=== PATIENT | male | born 2000 | race Caucasian/White ===

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

== ENCOUNTER 2021-05-04 13:27 | Emergency (ER) | payer OTHER ==
[~2021-05-04 13:27] MED LIST: NAPR-837 PO; REGL10TA6 PO
[2021-05-04] MEDS ORDERED: ACETAMINOPHEN TAB 650MG DOSE (2X325MG) PO ONE (15:20)
[2021-05-04 16:23] VITALS: BP 153/86
== END 2021-05-04 16:25 | disposition home or self-care (01) ==
LOC: M ED 13:27
DX: S00.81XA Abrasion of other part of head, initial encounter (principal); V47.5XXA Car driver injured in collision with fixed or stationary object in traffic accident, initial encounter; Y92.410 Unspecified street and highway as the place of occurrence of the external cause

== ENCOUNTER 2023-10-25 08:15 | Emergency (ER) | payer OTHER, SELFPAY ==
[~2023-10-25] VITALS: Ht 160 cm; Wt 57.7 kg
[2023-10-25 09:28] LABS: BASO # 0.1 10^3/uL (0.0-0.2); BASO % 0.5 % (0.0-1.0); EOS # 0.3 10^3/uL (0.0-0.5); EOS % 3.1 % (0.0-3.0); HEMATOCRIT 40.5 % (42.0-52.0); HEMOGLOBIN 13.8 g/dl (13.5-17.5); LYMPH # 1.4 10^3/uL (1.5-5.0); LYMPH % 13.7 % (24.0-44.0); MEAN CORPUSCULAR HEMOGLOBIN 32.4 pg (27.0-33.0); MEAN CORPUSCULAR HGB CONC 34.1 g/dl (32.0-36.5); MEAN CORPUSCULAR VOLUME 95.1 fl (80.0-96.0); MONO # 0.7 10^3/uL (0.0-0.8); MONO % 7.4 % (2.0-8.0); NEUTROPHILS # 7.5 10^3/uL (1.5-8.5); NEUTROPHILS % 74.8 % (36.0-66.0); PLATELET COUNT, AUTOMATED 304 10^3/uL (150-450); RED BLOOD COUNT 4.26 10^6/uL (4.30-6.10)
[2023-10-25 09:53] LABS: ETHYL ALCOHOL (ETHANOL) < 0.003 % (0.000-0.010)
[2023-10-25 09:55] LABS: BLOOD UREA NITROGEN 9 MG/DL (9-23); CALCIUM LEVEL 9.1 MG/DL (8.5-10.1); CARBON DIOXIDE LEVEL 31 MMOL/L (20-31); CHLORIDE LEVEL 104 MMOL/L (98-107); CPK CREATINE PHOSPHOKINASE 465 U/L (46-171); CREATININE FOR GFR 0.84 MG/DL (0.70-1.30); GLOMERULAR FILTRATION RATE > 60.0 (>60); GLUCOSE, FASTING 108 MG/DL (60-100); MAGNESIUM LEVEL 2.1 MG/DL (1.8-2.4); POTASSIUM SERUM 3.9 MMOL/L (3.5-5.1); SODIUM LEVEL 137 MMOL/L (136-145)
[2023-10-25] MEDS: ONDANSETRON 4MG 2ML VIAL IV ONE (10:21)
[2023-10-25] MEDS: NS 1,000 ML IV ONE (10:23)
[2023-10-25] MEDS: ACETAMINOPHEN *IV* 1,000 MG in IV 1 EA IV ONE (10:25)
[2023-10-25] MEDS ORDERED: HOME MED LIST COMPLETE! XX SCH (10:35)
[2023-10-25 10:54] LABS: AMPHETAMINES LEVEL URINE NEGATIVE (NEGATIVE)
[2023-10-25 10:55] LABS: BARBITURATES URINE NEGATIVE (NEGATIVE); BENZODIAZEPINES URINE NEGATIVE (NEGATIVE); COCAINE METABOLITE URINE NEGATIVE (NEGATIVE); METHADONE URINE NEGATIVE (NEGATIVE); OPIATES URINE NEGATIVE (NEGATIVE); PHENCYCLIDINE URINE NEGATIVE (NEGATIVE)
[2023-10-25 11:00] LABS: CANNABINOIDS URINE POSITIVE (NEGATIVE)
[2023-10-25] MEDS ORDERED: KEPP1TAB PO (12:42)
[2023-10-25] MEDS: levETIRAcetam INJection 1,000 MG in D5W 100 ML IV ONE (14:02)
[2023-10-25 14:54] VITALS: BP 142/62; TEMP 96.8; O2SAT 95
== END 2023-10-25 15:00 | disposition home or self-care (01) ==
LOC: M ED 08:15
DX: G40.209 Localization-related (focal) (partial) symptomatic epilepsy and epileptic syndromes with complex partial seizures, not intractable, without status epilepticus (principal); F17.200 Nicotine dependence, unspecified, uncomplicated; F17.290 Nicotine dependence, other tobacco product, uncomplicated
CPT/HCPCS: 36415; 70450; 80048; 80307; 82077; 82550; 83735; 85025; 93005; 93041; 96365; 96366; 96368; 96375; 99285; J0131; J1953; J2405

== ENCOUNTER → 2024-01-05 | Outpatient (CLI) | payer OTHER ==
[~2024-01-05] MED LIST changes: +KEPP1TAB PO
== END ==
LOC: M PLAIMG 14:54
PROVIDERS: ATTEND Nurse Practitioner Family
DX: G40.309 Generalized idiopathic epilepsy and epileptic syndromes, not intractable, without status epilepticus (principal); G93.89 Other specified disorders of brain; Z98.890 Other specified postprocedural states

== ENCOUNTER 2024-04-02 00:32 | Inpatient (IN) | payer OTHER ==
[~2024-04-02] VITALS: Ht 167.6 cm; Wt 59.0 kg
[2024-04-02] MEDS: HALOPERIDOL LACTATE 5MG/ML VIAL IM ONE (00:40)
[2024-04-02] MEDS: diphenhydrAMINE 50MG/ML VIAL IM ONE (00:40)
[2024-04-02] MEDS: LORazepam 2 MG/ML 1ML VIAL IM ONE (00:40)
[2024-04-02 02:41] LABS: HEMATOCRIT 43.4 % (42.0-52.0); HEMOGLOBIN 14.9 g/dl (13.5-17.5); MEAN CORPUSCULAR HEMOGLOBIN 33.1 pg (27.0-33.0); MEAN CORPUSCULAR HGB CONC 34.3 g/dl (32.0-36.5); MEAN CORPUSCULAR VOLUME 96.4 fl (80.0-96.0); PLATELET COUNT, AUTOMATED 309 10^3/uL (150-450); WHITE BLOOD COUNT 10.7 10^3/uL (4.0-10.0)
[2024-04-02 03:00] LABS: ETHYL ALCOHOL (ETHANOL) 0.174 % (0.000-0.010)
[2024-04-02 03:01] LABS: SALICYLATE LEVEL < 3.0 MG/DL (<30)
[2024-04-02 03:02] LABS: ALBUMIN 4.2 G/DL (3.2-5.2); ALKALINE PHOSPHATASE 91 U/L (40-129); ALT/SGPT 20 U/L (7.0-40); AST/SGOT 19 U/L (<34); BILIRUBIN,DIRECT < 0.1 MG/DL (<0.4); BILIRUBIN,TOTAL 0.2 MG/DL (0.3-1.2); BLOOD UREA NITROGEN 11 MG/DL (9-23); CALCIUM LEVEL 9.3 MG/DL (8.5-10.1); CARBON DIOXIDE LEVEL 23 MMOL/L (20-31); CHLORIDE LEVEL 109 MMOL/L (98-107); CREATININE FOR GFR 0.77 MG/DL (0.70-1.30); GLOMERULAR FILTRATION RATE > 60.0 (>60); GLUCOSE, FASTING 100 MG/DL (60-100); POTASSIUM SERUM 4.1 MMOL/L (3.5-5.1); SODIUM LEVEL 146 MMOL/L (136-145); TOTAL PROTEIN 7.5 G/DL (5.7-8.2)
[2024-04-02 03:04] LABS: THYROID STIMULATING HORMONE 2.991 uIU/ML (0.55-4.78)
[2024-04-02 03:10] LABS: AMPHETAMINES LEVEL URINE NEGATIVE (NEGATIVE)
[2024-04-02 03:11] LABS: BARBITURATES URINE NEGATIVE (NEGATIVE); BENZODIAZEPINES URINE NEGATIVE (NEGATIVE); COCAINE METABOLITE URINE NEGATIVE (NEGATIVE); METHADONE URINE NEGATIVE (NEGATIVE); OPIATES URINE NEGATIVE (NEGATIVE); PHENCYCLIDINE URINE NEGATIVE (NEGATIVE)
[2024-04-02 03:13] LABS: CANNABINOIDS URINE POSITIVE (NEGATIVE)
[2024-04-02] MEDS ORDERED: MED REC CURRENTLY UNOBTAINABLE XX SCH (03:40)
[2024-04-02] MEDS: levETIRAcetam 250MG TABLET (KEPPRA) PO ONE (08:23)
[2024-04-02] MEDS ORDERED: KEPP1TAB PO (08:29)
[2024-04-02] MEDS ORDERED: HOME MED LIST COMPLETE! XX SCH (08:30)
[2024-04-02 15:45] VITALS: BP 132/81; TEMP 98.5; O2SAT 99
[2024-04-03 06:45] VITALS: BP 140/65; TEMP 99; O2SAT 100
[2024-04-03] MEDS: levETIRAcetam 250MG TABLET (KEPPRA) PO SCH (12:13)
[2024-04-03 16:07] VITALS: BP 137/77; TEMP 98.4
[2024-04-04 06:43] VITALS: BP 142/63; TEMP 97.5; O2SAT 98
[2024-04-04 06:44] VITALS: BP 142/63; TEMP 97.5; O2SAT 98
[2024-04-04 16:19] VITALS: BP 144/69; TEMP 98.4; O2SAT 99
[2024-04-05 06:32] VITALS: BP 127/65; TEMP 98.1; O2SAT 99
[2024-04-05 17:38] VITALS: BP 136/81; TEMP 98.2; O2SAT 99
[2024-04-05] MEDS: traZODone 50 MG TAB PO PRN (21:23)
[2024-04-06 06:33] VITALS: BP 142/65; TEMP 97.2; O2SAT 100
[2024-04-06] MEDS ORDERED: TRAZ-252 PO (09:12)
== END 2024-04-06 11:04 | disposition home or self-care (01) | DRG 754 ==
LOC: M ED 00:32 → M ED INP 13:05 → M PSY 15:09
PROVIDERS: ADMIT Psychiatry & Neurology Psychiatry; ATTEND Psychiatry & Neurology Psychiatry
DX: F32.A Depression, unspecified (principal); E87.0 Hyperosmolality and hypernatremia; R45.851 Suicidal ideations; G40.909 Epilepsy, unspecified, not intractable, without status epilepticus; F10.14 Alcohol abuse with alcohol-induced mood disorder; Z56.0 Unemployment, unspecified; Z78.1 Physical restraint status; Z63.8 Other specified problems related to primary support group; Z79.899 Other long term (current) drug therapy; Z87.820 Personal history of traumatic brain injury

== ENCOUNTER 2024-04-10 17:33 | Emergency (ER) | payer MEDICAID, OTHER ==
[~2024-04-10] VITALS: Ht 167.6 cm; Wt 54.2 kg
[~2024-04-10 17:33] MED LIST changes: +TRAZ-252 PO
[2024-04-10 18:28] LABS: HEMATOCRIT 41.2 % (42.0-52.0); HEMOGLOBIN 14.2 g/dl (13.5-17.5); MEAN CORPUSCULAR HEMOGLOBIN 32.9 pg (27.0-33.0); MEAN CORPUSCULAR HGB CONC 34.5 g/dl (32.0-36.5); MEAN CORPUSCULAR VOLUME 95.6 fl (80.0-96.0); PLATELET COUNT, AUTOMATED 359 10^3/uL (150-450); RED BLOOD COUNT 4.31 10^6/uL (4.30-6.10)
[2024-04-10 18:58] LABS: ETHYL ALCOHOL (ETHANOL) 0.008 % (0.000-0.010)
[2024-04-10 18:59] LABS: SALICYLATE LEVEL 4.4 MG/DL (<30)
[2024-04-10 19:00] LABS: ALBUMIN 4.2 G/DL (3.2-5.2); ALKALINE PHOSPHATASE 71 U/L (40-129); ALT/SGPT 19 U/L (7.0-40); AST/SGOT 26 U/L (<34); BILIRUBIN,DIRECT < 0.1 MG/DL (<0.4); BILIRUBIN,TOTAL 0.3 MG/DL (0.3-1.2); BLOOD UREA NITROGEN 14 MG/DL (9-23); CALCIUM LEVEL 9.5 MG/DL (8.5-10.1); CARBON DIOXIDE LEVEL 25 MMOL/L (20-31); CHLORIDE LEVEL 107 MMOL/L (98-107); CREATININE FOR GFR 0.78 MG/DL (0.70-1.30); GLOMERULAR FILTRATION RATE > 60.0 (>60); GLUCOSE, FASTING 84 MG/DL (60-100); POTASSIUM SERUM 4.1 MMOL/L (3.5-5.1); SODIUM LEVEL 144 MMOL/L (136-145); TOTAL PROTEIN 7.5 G/DL (5.7-8.2)
[2024-04-10 19:04] LABS: THYROID STIMULATING HORMONE 1.615 uIU/ML (0.55-4.78)
[2024-04-10] MEDS ORDERED: HOME MED LIST COMPLETE! XX SCH (20:55)
[2024-04-10 20:57] LABS: AMPHETAMINES LEVEL URINE NEGATIVE (NEGATIVE); BARBITURATES URINE NEGATIVE (NEGATIVE); COCAINE METABOLITE URINE NEGATIVE (NEGATIVE)
[2024-04-10 20:58] LABS: BENZODIAZEPINES URINE NEGATIVE (NEGATIVE); METHADONE URINE NEGATIVE (NEGATIVE); OPIATES URINE NEGATIVE (NEGATIVE); PHENCYCLIDINE URINE NEGATIVE (NEGATIVE)
[2024-04-10 20:59] LABS: CANNABINOIDS URINE POSITIVE (NEGATIVE)
[2024-04-10 22:21] VITALS: BP 96/50; TEMP 97; O2SAT 98
== END 2024-04-10 23:45 | disposition home or self-care (01) ==
LOC: M ED 17:33
DX: F43.0 Acute stress reaction (principal); F12.129 Cannabis abuse with intoxication, unspecified; Z79.899 Other long term (current) drug therapy

== ENCOUNTER 2025-02-06 15:15 | Emergency (ER) | payer OTHER ==
[~2025-02-06] VITALS: Ht 167.6 cm; Wt 56.9 kg
[2025-02-06 16:02] LABS: BASO # 0.1 10^3/uL (0.0-0.2); BASO % 0.3 % (0.0-1.0); EOS # 0.0 10^3/uL (0.0-0.5); EOS % 0.0 % (0.0-3.0); LYMPH # 1.2 10^3/uL (1.5-5.0); LYMPH % 5.7 % (24.0-44.0); MONO # 0.9 10^3/uL (0.0-0.8); MONO % 4.3 % (2.0-8.0); NEUTROPHILS # 18.1 10^3/uL (1.5-8.5); NEUTROPHILS % 89.3 % (36.0-66.0); PLATELET COUNT, AUTOMATED 290 10^3/uL (150-450)
[2025-02-06] MEDS: levETIRAcetam INJection 1,000 MG in IV 1 EA IV ONE (16:14)
[2025-02-06] MEDS: NS (Normal Saline) 0.9% 1,000 ML IV ONE (16:16)
[2025-02-06 16:27] LABS: ALT/SGPT 17 U/L (7.0-40); AST/SGOT 24 U/L (<34); CALCIUM LEVEL 8.6 MG/DL (8.5-10.1); CARBON DIOXIDE LEVEL 25 MMOL/L (20-31); CHLORIDE LEVEL 106 MMOL/L (98-107); CREATININE FOR GFR 0.97 MG/DL (0.70-1.30); GLOMERULAR FILTRATION RATE > 90.0 (>60); MAGNESIUM LEVEL 2.0 MG/DL (1.8-2.4); PHOSPHORUS LEVEL 3.0 MG/DL (2.5-4.9); POTASSIUM SERUM 4.1 MMOL/L (3.5-5.1); SODIUM LEVEL 141 MMOL/L (136-145)
[2025-02-06 18:18] LABS: KETONE, URINE AUTO RFX 1+ mg/dL (NEGATIVE); LEUKOCYTE ESTERASE UR AUTO RFX NEGATIVE (NEGATIVE); MUCUS, URINE RFX SMALL (NEGATIVE); NITRITE, URINE AUTO RFX NEGATIVE (NEGATIVE); RBC, URINE AUTO RFX 4 /HPF (0-3); SQUAM EPITHELIAL CELL UR AURFX 0 /HPF (0-6); WBC, URINE AUTO RFX 2 /HPF (0-3)
[2025-02-06 18:29] LABS: AMPHETAMINES LEVEL URINE NEGATIVE (NEGATIVE); BARBITURATES URINE NEGATIVE (NEGATIVE); BENZODIAZEPINES URINE NEGATIVE (NEGATIVE); COCAINE METABOLITE URINE NEGATIVE (NEGATIVE); METHADONE URINE NEGATIVE (NEGATIVE); OPIATES URINE NEGATIVE (NEGATIVE); PHENCYCLIDINE URINE NEGATIVE (NEGATIVE)
[2025-02-06 18:32] LABS: CANNABINOIDS URINE POSITIVE (NEGATIVE)
[2025-02-06 19:30] VITALS: BP 154/66; TEMP 97.9; O2SAT 98
[2025-02-06] MEDS ORDERED: KEPP1TAB2 PO (19:40)
[2025-02-06] MEDS ORDERED: DIVA-65 PO (19:40)
== END 2025-02-06 20:00 | disposition home or self-care (01) ==
LOC: M ED 15:15 → EDBD 15:15 → M ED 20:00
DX: G40.909 Epilepsy, unspecified, not intractable, without status epilepticus (principal); F32.A Depression, unspecified; Z79.899 Other long term (current) drug therapy
CPT/HCPCS: 51701; 70450; 71046; 80047; 80048; 80076; 80177; 80307; 81001; 83735; 84100; 85025; 87040; 87486; 87581; 87633; 87798; 93005; 94760; 96365; 96366; 99285; J1953